=== PATIENT | male | born 1955 | race Caucasian/White ===

== ENCOUNTER 2020-06-01 10:40 | Emergency (ER) | payer OTHER ==
[2020-06-01 10:50] VITALS: BP 181/93
[2020-06-01] MEDS ORDERED: PREDNISONE 20 MG TABLET PO ONE (11:04)
[2020-06-01] MEDS ORDERED: KETOROLAC TROMETHAMINE 60 MG/2 ML SDV IM ONE (11:04)
--- NOTE | 2020-06-01 11:07 | ER Document Report ---
ED Hip Pain/Injury - General Chief Complaint: Hip Pain Stated Complaint: LEFT HIP PAIN,BACK PAIN Time Seen by Provider: 06/01/20 11:00 Primary Care Provider: VENKATESH WOOD JR, DO [ACTIVE PROVISIONAL STAFF] - Follow up as needed Notes: CHIEF COMPLAINT: Hip and back pain for 3 days HPI: 64-year-old male presenting for left lower back pain and hip pain over the last 3 days. Patient was using a chainsaw in the backyard cutting trees but does not recall a specific injury did not fall. Some numbness and tingling through the left gluteal region into the left hip with sitting or standing. Patient does report history of some back issues. Denies incontinence of urine or bowel. Denies perineal numbness. ROS: See HPI - all other systems were reviewed and are otherwise negative Constitutional: no fever GI: no vomiting, no diarrhea, no abdominal pain : no dysuria Integumentary: no rash Allergy: no hives Musculoskeletal: + extremity pain or swelling Neurological: + numbness/tingling, no weakness MEDICATIONS: I agree with the patient medications as charted by the RN. ALLERGIES: I agree with the allergies as charted by the RN. PAST MEDICAL HISTORY/PAST SURGICAL HISTORY: Reviewed and agree as charted by RN. SOCIAL HISTORY: Reviewed and agree as charted by RN. FAMILY HISTORY: No significant familial comorbid conditions directly related to patient complaint EXAM: Reviewed vital signs as charted by RN. CONSTITUTIONAL: Alert and oriented and responds appropriately to questions. Well-appearing; well-nourished HEAD: Normocephalic; atraumatic EYES: Conjunctivae clear, sclerae non-icteric ENT: normal nose; no rhinorrhea; moist mucous membranes NECK: Supple without meningismus CARD: symmetric distal pulses RESP: Normal chest excursion without splinting or tachypnea ABD/GI: Normal bowel sounds; non-distended; soft, non-tender, no rebound, no guarding; no palpable organomegaly or masses. BACK: The back appears normal and is mildly tender to palpation of the left lower lumbar musculature laterally into the upper aspect of the left gluteus, there is no CVA tenderness EXT: Normal ROM in all joints; non-tender to palpation; no cyanosis, no effusions, no edema SKIN: Normal color for age and race; warm; dry; good turgor; no acute lesions noted NEURO: Moves all extremities equally; Motor and sensory function intact. Strength equal 5/5 bilateral lower extremities. Sensation intact and equal bilateral lower extremities. Straight leg raise is negative. No saddle anesthesia on exam. DTRs 2+ intact and equal bilateral lower extremities. PSYCH: The patient's mood and manner are appropriate. Grooming and personal hygiene are appropriate. MDM: 64-year-old male with sciatic symptoms over the last 3 days. No incontinence of urine or bowel or perineal numbness or saddle anesthesia to suggest cauda equina. Did not have a fall, suspect sciatica. Patient would like imaging studies will obtain lumbar spine and hip x-ray to ensure no lesions or fractures although I have low suspicion for same, if imaging studies do not show acute actionable abnormalities will discharge home on steroids, anti- inflammatories with orthopedic referral - Related Data Allergies/Adverse Reactions: No Known Allergies Allergy (Unverified 06/01/20 11:00) Past Medical History - Social History Smoking Status: Never Smoker Chew tobacco use (# tins/day): No Frequency of alcohol use: Social Drug Abuse: None Family History: Reviewed & Not Pertinent - Past Medical History Cardiac Medical History: Reports: Hx Hypertension Physical Exam - Vital signs Vitals: Temp Pulse Resp BP Pulse Ox 97.9 F 62 22 H 181/93 H 98 06/01/20 10:49 06/01/20 10:49 06/01/20 10:49 06/01/20 10:49 06/01/20 10:49 Course - Re-evaluation Re-evalutation: 06/01/20 11:48 Patient noted to have degenerative disc disease in the back and arthritis of the hip no fracture will discharge as planned - Vital Signs Vital signs: Temp Pulse Resp BP Pulse Ox 97.9 F 62 22 H 181/93 H 98 06/01/20 10:49 06/01/20 10:49 06/01/20 10:49 06/01/20 10:49 06/01/20 10:49 Discharge - Discharge Clinical Impression: Hip pain, left Lower back pain Qualifiers: Chronicity: acute Back pain laterality: left Sciatica presence: with sciatica Sciatica laterality: sciatica of left side Qualified Code(s): M54.42 - Lumbago with sciatica, left side Condition: Stable Disposition: HOME, SELF-CARE Instructions: Sciatica ([facility]) Additional Instructions: 1. Warm heat to the lower back twice daily 2. no heavy lifting for 2-3 days 3. medications as prescribed 4. follow up with orthopedics for further evaluation and treatment as needed for any continuing pain or problems, call for appt. 5. return to the ER for any onset of incontinence of urine, fever > 101 or worsening condition Prescriptions: Prednisone [Deltasone 20 mg Tablet] 2 tab PO DAILY 5 Days #10 tablet Cyclobenzaprine HCl [Flexeril 10 mg Tablet] 10 mg PO TIDP PRN #15 tab PRN Reason: Diclofenac Sodium [Voltaren 50 Mg Tablet.] 50 mg PO BID #20 tablet. Referrals: VENKATESH WOOD JR, DO [ACTIVE PROVISIONAL STAFF] - Follow up as needed
--- NOTE | 2020-06-01 11:44 | RADIOLOGY REPORT (SQ) ---
EXAM DESCRIPTION: HIP LEFT AP/LATERAL IMAGES COMPLETED DATE/TIME: 06/01/2020 11:22 am REASON FOR STUDY: hip pain COMPARISON: None. NUMBER OF VIEWS: Two views. TECHNIQUE: AP pelvis and additional frog leg view of the left hip. LIMITATIONS: None. FINDINGS: MINERALIZATION: Normal. LEFT HIP: No acute fracture. CAM type femoroacetabular impingement. RIGHT HIP: No fracture. CAM type femoroacetabular impingement. PUBIS AND ISCHIUM: No fracture. PELVIS: No fracture. SACRUM: No fracture or dislocation. No worrisome bone lesions. LOWER LUMBAR SPINE: No fracture or dislocation. No worrisome bone lesions. No significant disc disea se. SOFT TISSUES: No findings. OTHER: No other significant finding. IMPRESSION: No acute findings. Bilateral CAM type femoroacetabular impingement. COMMENT: Pelvic fractures are often occult on plain radiographs. If strong clinical suspicion for fracture, recommend CT or MR. TECHNICAL DOCUMENTATION: JOB ID: [id number] [employer]- All Rights Reserved Reading location - IP/workstation name: [email or web address]
--- NOTE | 2020-06-01 11:45 | RADIOLOGY REPORT (SQ) ---
EXAM DESCRIPTION: L SPINE WHOLE IMAGES COMPLETED DATE/TIME: 06/01/2020 11:22 am REASON FOR STUDY: left low back pain COMPARISON: None. NUMBER OF VIEWS: Five views including obliques. TECHNIQUE: AP, lateral, oblique, and sacral radiographic images acquired of the lumbar spine. LIMITATIONS: None. FINDINGS: MINERALIZATION: Normal. SEGMENTATION: Normal. No transitional anatomy. ALIGNMENT: Normal. VERTEBRAE: Maintained height. No fracture or worrisome bone lesion. DISCS: Multilevel degenerative disc disease with osteophytes. Mild diffuse disc space narrowing. POSTERIOR ELEMENTS: Pedicles and facets are intact. No pars defect or posterior arch defects. HARDWARE: None in the spine. PARASPINAL SOFT TISSUES: Normal. PELVIS: Intact as visualized. No fractures or worrisome bone lesions. SI joints intact. OTHER: No other significant finding. IMPRESSION: Multilevel degenerative disc disease. TECHNICAL DOCUMENTATION: JOB ID: [id number] [employer]- All Rights Reserved Reading location - IP/workstation name: [email or web address]
== END 2020-06-01 11:54 | disposition home or self-care (01) ==
LOC: ER 10:40
DX: M25.552 Pain in left hip (principal); M54.42 Lumbago with sciatica, left side
CPT/HCPCS: 99284; 96372; 73502; 72110; J1885; J7512